=== PATIENT | female | born 1990 | race Caucasian/White ===

== ENCOUNTER 2019-03-05 14:56 | Emergency (ER) | payer OTHER ==
[~2019-03-05] VITALS: Ht 172.7 cm; Wt 95.3 kg
[2019-03-05 14:56] VITALS: BP_SYST 134
--- NOTE | 2019-03-05 14:56 | NUR ---
Patient to ER bed 7 to gown for evaluation. Side rails up. Report given to SUSSY Orr.
--- NOTE | 2019-03-05 15:00 | NUR ---
Pt brought by family member, A&Ox4, pt presents to ER with heavy bleeding since yesterday, states she had an on 01/28, pt weak at this time, cap refill <3, VSS.
--- NOTE | 2019-03-05 15:10 | NUR ---
Dr Gonzales at bedside examining patient
--- NOTE | 2019-03-05 15:30 | NUR ---
# 20 gauge angiocath placed to LAC. Use of asceptic technique. Opsite placed over site. Blood return noted. Blood for lab drawn from site. Flushed with 10 cc of normal saline. No evidence of infiltration noted. Patient tolerated well.
[2019-03-05 15:35] LABS: BASOPHILS # (AUTO) 0.1 K/uL (0.0-0.2); BASOPHILS % (AUTO) 0.6 % (0.0-2.0); EOSINOPHILS % (AUTO) 0.3 % (0.0-4.0); HEMATOCRIT 41.6 % (36-48); LYMPHOCYTES # (AUTO) 2.6 K/uL (1.0-5.5); MEAN CORPUSCULAR HEMOGLOBIN 31 pg (27-31); MEAN CORPUSCULAR HGB CONC 34 % (32-36); MEAN CORPUSCULAR VOLUME 93 fL (79.0-98.0); MONOCYTES # (AUTO) 0.5 K/uL (0.0-1.0); MONOCYTES % (AUTO) 5.3 % (1.7-9.3); NEUTROPHILS # (AUTO) 6.7 K/uL (1.8-7.7); NEUTROPHILS % (AUTO) 67.8 % (40.0-70.0); PLATELET COUNT (AUTO) 310 K/uL (130-430); RED BLOOD CELL COUNT(AUTO) 4.49 MIL/uL (4.2-6.2); RED CELL DISTRIBUTION WIDTH 13.5 % (9.0-15.0); WHITE BLOOD COUNT (AUTO) 9.9 K/uL (4.8-10.8)
--- NOTE | 2019-03-05 15:45 | NUR ---
Dr. Gonzales at the bedside performing a pelvic exam.
[2019-03-05 15:49] LABS: CREATININE 0.91 mg/dL (0.55-1.30); POTASSIUM 3.4 mmol/L (3.5-5.1)
[2019-03-05 15:54] LABS: PROTHROMBIN TIME 10.5 SECS (9.5-12.5)
--- NOTE | 2019-03-05 16:07 | NUR ---
Pt resting at this time, amount of bleeding decreased at this time.
--- NOTE | 2019-03-05 16:37 | NUR ---
Patient transported to radiology via WC, accompanied by US tech.
[2019-03-05 17:07] LABS: BILIRUBIN,URINE NEGATIVE (NEGATIVE); BLOOD, URINE 3+ (NEGATIVE); CLARITY/URINE CLOUDY (CLEAR); COLOR,URINE YELLOW (YELLOW); GLUCOSE,URINE NEGATIVE (NEGATIVE); KETONES,URINE NEGATIVE (NEGATIVE); LEUKOCYTE ESTERASE ,URINE NEGATIVE (NEGATIVE); NITRITE, URINE NEGATIVE (NEGATIVE); PROTEIN URINE 2+ (NEGATIVE); UROBILINOGEN,URINE 0.2 (0.2-1.0)
[2019-03-05 17:24] LABS: BACTERIA,URINE FEW /HPF (None Seen); RBC,URINE >100 /HPF (0-3); WBC,URINE 0-3 /HPF (0-3)
--- NOTE | 2019-03-05 17:28 | NUR ---
Pt A&Ox4, VSS, respirations even and unlabored, friend at bedside.
[2019-03-05] MEDS ORDERED: NACL 0.9% 1,000 ML IV ONE (17:30)
--- NOTE | 2019-03-05 18:13 | NUR ---
Pt A&Ox4, VSS, respirations even and unlabored.
--- NOTE | 2019-03-05 18:20 | NUR ---
Pt refusing any pain medication , awared
--- NOTE | 2019-03-05 18:58 | NUR ---
Patient given written and verbal discharge instructions and verbalizes understanding. ER MD discussed with patient the results and treatment provided. Patient in stable condition. ID arm band removed. No Rx given. Patient educated on pain management and to follow up with PMD. Pain Scale 0/10. Opportunity for questions provided and answered. Medication side effect fact sheet provided.
[2019-03-05 18:59] VITALS: BP_SYST 106
== END 2019-03-05 18:59 | disposition home or self-care (01) ==
LOC: SED 14:56
DX: O20.9 Hemorrhage in early pregnancy, unspecified (principal); Z3A.12 12 weeks gestation of pregnancy
CPT/HCPCS: 36415; 76805; 80048; 81000; 81025; 84702; 85025; 85610; 85730; 86886; 86900; 86901; 99284; J7030